=== PATIENT | female | born 1955 | race Caucasian/White ===

== ENCOUNTER 2018-07-05 13:14 | Outpatient (REF) | payer OTHER, SELFPAY ==
[2018-07-05 19:15] LABS: BUN 16 mg/dL (7-18); CREATININE 0.78 mg/dL (0.55-1.02); Chloride 106 mmol/L (98-107); Cholesterol 201 mg/dL (50-200); Glucose 92 mg/dL (70-100); HDL Cholesterol 56 mg/dL (40-60); LDL CHOLESTEROL 124 mg/dL (<100); Potassium 4.4 mmol/L (3.5-5.1); Sodium 144 mmol/L (136-145); TSH 2.05 uIU/mL (0.358-3.74); Triglyceride 110 mg/dL (30-150)
== END 2018-07-05 13:34 ==
LOC: NCHCN 13:14
PROVIDERS: Visit Provider Nurse Practitioner Family
DX: E78.5 Hyperlipidemia, unspecified (principal); I10 Essential (primary) hypertension
CPT/HCPCS: 80048; 80061; 83721; 84443

== ENCOUNTER 2018-09-01 13:40 | Outpatient (CLI) | payer OTHER, SELFPAY ==
--- NOTE | 2018-09-01 12:32 | DI.RAD_ITS ---
SYMPTOMS/DIAGNOSIS: RT HIP JOINT PAIN, M25.551 RIGHT HIP AND PELVIS: Three views were obtained. There is an apparent injection granuloma of the right buttock. There is a small ossicle adjacent to the lateral aspect of the acetabulum. There is marked narrowing of the cartilaginous joint space of the right hip with subchondral sclerosis of the acetabulum and femoral head. CONCLUSION: Moderate to severe DJD right hip.
== END 2018-09-01 14:00 ==
PROVIDERS: PCP Neuromusculoskeletal Medicine & OMM; Visit Provider Nurse Practitioner Family
DX: M25.551 Pain in right hip (principal); M16.11 Unilateral primary osteoarthritis, right hip
CPT/HCPCS: 73502

== ENCOUNTER 2018-09-19 09:12 | Emergency (ER) | payer OTHER, SELFPAY ==
[2018-09-19 09:31] VITALS: BP 132/68; PULSE 88; RESP 16; TEMP 37.6; O2SAT 96
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
== END 2018-09-19 10:56 | disposition home or self-care (01) ==
PROVIDERS: Emergency Provider Nurse Practitioner Family; PCP Nurse Practitioner Family
DX: S00.83XA Contusion of other part of head, initial encounter (principal); Y04.0XXA Assault by unarmed brawl or fight, initial encounter; Y99.0 Civilian activity done for income or pay
CPT/HCPCS: 99282

== ENCOUNTER 2018-09-23 09:41 | Emergency (ER) | payer OTHER, SELFPAY ==
[2018-09-23 09:46] VITALS: BP 158/74; PULSE 85; RESP 18; O2SAT 98
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
[2018-09-23 11:05] VITALS: BP 158/74; PULSE 85; RESP 18; TEMP 36.6; O2SAT 98
== END 2018-09-23 11:05 | disposition home or self-care (01) ==
PROVIDERS: Emergency Provider Nurse Practitioner Family; PCP Nurse Practitioner Family
DX: S00.83XA Contusion of other part of head, initial encounter (principal); Y04.0XXA Assault by unarmed brawl or fight, initial encounter
CPT/HCPCS: 99284; 70486

== ENCOUNTER 2020-09-23 15:11 | Outpatient (CLI) | payer OTHER, SELFPAY ==
--- NOTE | 2020-09-23 14:15 | DI.RAD_ITS ---
Exam(s) XR HIP RT COMPLETE AP PELVIS EXAM: XR HIP RT COMPLETE AP PELVIS CLINICAL HISTORY: right hip pain; DJD. TECHNIQUE: 2D digital imaging was performed. COMPARISON: CR XR hip RT complete AP pelvis from 09/01/2018 FINDINGS: There are marked degenerative changes of the right hip which have shown significant progression since the examination from 09/01/2018. There is now joint space narrowing, subchondral cysts and sclerosis and periarticular spurring present. Mild joint space narrowing is seen in the left hip. The sacroi liac joints and symphysis pubis are intact. No acute fracture or dislocation. IMPRESSION: Progression of the right hip which now shows marked osteoarthritis. DATA REPOSITORY: RADIATION DOSE DELIVERED:
== END 2020-09-23 15:12 | disposition home or self-care (01) ==
LOC: DIORS 15:12
PROVIDERS: PCP Nurse Practitioner Family; Referring Provider Nurse Practitioner Family; Visit Provider Physician Assistant
DX: M25.551 Pain in right hip (principal); M16.11 Unilateral primary osteoarthritis, right hip; I10 Essential (primary) hypertension
CPT/HCPCS: 99213; 73502

== ENCOUNTER 2020-10-29 14:22 | Outpatient (CLI) | payer OTHER, SELFPAY ==
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
== END 2020-10-29 14:23 | disposition home or self-care (01) ==
LOC: DIORS 14:23
PROVIDERS: PCP Nurse Practitioner Family; Referring Provider Nurse Practitioner Family; Visit Provider Physician Assistant
DX: M25.551 Pain in right hip (principal); M16.11 Unilateral primary osteoarthritis, right hip
CPT/HCPCS: 72170

== ENCOUNTER 2020-11-04 02:19 | Outpatient (CLI) | payer OTHER, SELFPAY ==
[2020-11-04 11:23] LABS: Source Nasal/Nares
[2020-11-04 21:00] LABS: COVID-19 PCR Negative (Negative)
== END 2020-11-04 02:20 | disposition home or self-care (01) ==
LOC: LBO 02:20
PROVIDERS: PCP Physician Assistant; Visit Provider Student in an Organized Health Care Education/Training Program
DX: Z20.822 Contact with and (suspected) exposure to COVID-19 (principal); Z01.818 Encounter for other preprocedural examination
CPT/HCPCS: 87635

== ENCOUNTER 2020-11-04 02:33 | Outpatient (CLI) | payer OTHER, SELFPAY ==
[2020-11-04 10:20] LABS: HCT 36.2 % (36.0-46.0); HGB 11.8 g/dL (11.2-15.7); MCH 28.7 pg (27.0-33.0); MCHC 32.6 % (32.0-36.0); MCV 88.1 fL (80-95); MPV 10.3 fL (8.0-11.0); Platelet Count 266 10^3/uL (130-400); RBC 4.11 10^6/uL (3.93-5.22); RDW 13.2 % (11.7-14.6); RDW-SD 42.3 fL; WBC 7.71 10^3/uL (4.4-10.8)
[2020-11-04 11:22] LABS: BUN 32 mg/dL (7-18); CREATININE 1.1 mg/dL (0.55-1.02); Calcium 9.6 mg/dL (8.5-10.1); Chloride 108 mmol/L (98-107); Estimated GFR 49.54 (mL/min/1.73m2); Glucose 105 mg/dL (74-106); Potassium 4.6 mmol/L (3.5-5.1); Sodium 145 mmol/L (136-145)
== END 2020-11-04 02:34 | disposition home or self-care (01) ==
LOC: LBO 02:33
PROVIDERS: PCP Physician Assistant; Visit Provider Student in an Organized Health Care Education/Training Program
DX: M25.551 Pain in right hip (principal); Z16.11 Resistance to penicillins; I10 Essential (primary) hypertension; Z01.818 Encounter for other preprocedural examination; Z01.812 Encounter for preprocedural laboratory examination
CPT/HCPCS: 36415; 80048; 85027; 86850; 86900; 86901

== ENCOUNTER 2020-11-05 06:07 | Day surgery (SDC) | payer OTHER, SELFPAY ==
[2020-11-05] VITALS (12 sets, daily range): BP systolic 99–164; BP diastolic 50–87; PULSE 54–67; RESP 13–21; TEMP 35.7–36.5; TEMPC 36.1; O2SAT 95–99; BMI 34.4
[2020-11-05] MEDS: Celecoxib 200 MG CAP 400 MG PO (06:27)
[2020-11-05] MEDS: Acetaminophen 500 MG TAB 1000 MG PO ×2 (06:27→14:27)
[2020-11-05] MEDS: Lactated Ringers 1,000 ML 80 ML IV (06:28)
--- NOTE | 2020-11-05 06:32 | W.ANESPRE ---
General Info Date of Service Date Performed: 11/05/20 Height: 5 ft 8.5 in Weight: 104.1 kg Body Mass Index (BMI): 34.4 Surgical Procedure: Operation Date: 11/05/20 07:50 Proposed Procedures Side Surgeon p Hip Total Hip Anterior Right Andrew Arizmendi MD Meds Allergies and Home Medications Allergies Allergy/AdvReac Type Severity Reaction Status Date / Time No Known Allergies Allergy Unverified 11/05/20 06:02 Home Medication Medication Instructions Recorded acetaminophen 500 mg capsule 1,000 mg PO BID PRN cap 09/23/20 hydrocodone 10 mg-acetaminophen 1 tab PO TID PRN tab 09/23/20 325 mg tablet lisinopril 10 mg tablet 10 mg PO DAILY 09/23/20 naproxen 250 mg tablet 500 mg PO BID PRN tab 09/23/20 magnesium oxide 500 mg capsule 250 mg PO BID cap 10/29/20 Current Visit Medications: Current Medications Generic Name Dose Route Start Last Admin Trade Name Freq PRN Reason Stop Dose Admin Acetaminophen 1,000 mg 11/05/20 06:00 11/05/20 06:27 Acetaminophen 500 Mg Tab PO 11/05/20 16:00 1,000 mg PREOP ELIEZER Administration Celecoxib 400 mg 11/05/20 06:00 11/05/20 06:27 Celecoxib 200 Mg Cap PO 11/05/20 16:00 400 mg PREOP ELIEZER Administration Tranexamic Acid 1,000 mg/ 60 mls @ 360 mls/hr 11/05/20 06:00 Sodium Chloride IV 11/05/20 16:00 PREOP ELIEZER Ringer's Solution 1,000 mls @ 80 mls/hr 11/05/20 06:00 11/05/20 06:28 IV 12/04/20 23:59 80 mls/hr INFUSION ELIEZER Administration Cefazolin Sodium/Dextrose 2 gm in 50 mls @ 100 mls/hr 11/05/20 06:00 Ancef Duplex IVPB 11/05/20 23:59 PREOP ELIEZER IV Miscellaneous Supplies 1 each 11/05/20 06:00 Iv Access IV 12/04/20 23:59 DIRECTED ELIEZER Sodium Chloride 0 ml 11/05/20 06:00 Normal Saline Flush 10 Ml Syr IV 12/04/20 23:59 PRN PRN Sodium Chloride 0 ml 11/05/20 06:00 Normal Saline 10 Ml Vial IJ 12/04/20 23:59 DIRECTED PRN Sterile Water 0 ml 11/05/20 06:00 Water,Injection,Sterile 10 Ml Vial IJ 12/04/20 23:59 DIRECTED PRN PFSH Active Problems Active Problems: Problem Status Onset Code Hyperlipidemia E78.5 Degenerative disc disease Hypertension I10 Degenerative joint disease of right hip M16.11 Medical History Medical History Degenerative disc disease Degenerative joint disease of right hip Depression Hyperlipidemia Hypertension Injury of thoracic spine As a young adult from a horse injury Subdural hematoma trauma from horse ~18 yrs old Urine incontinence Surgical History Surgical History History of general anesthesia several times - ankle reductions removal of 4 wisdom teeth Ruptured appendix 8 yrs old Status post D&C UTI while - lead to early delivery at 27 wks - ?infected placenta and bleeding Tobacco Smoking/Tobacco Use Status: Former Tobacco Use Alcohol Alcohol Intake: current Alcohol intake frequency: a few times a month Substance Use Substance use: Daily Substance use type: marijuana Details: daily - smoking Vital Signs and Lab Results Vital Signs Most Recent Vital Signs in EMR: Most Recent Vital Signs Temp Pulse Resp BP Pulse Ox 35.7 C L 66 18 164/87 H 99 11/05/20 06:18 11/05/20 06:18 11/05/20 06:18 11/05/20 06:18 11/05/20 06:18 Lab Results Blood Type / Crossmatch: Patient ABO/Rh B Positive 11/04/20 10:06 11/04/20 Antibody Screen Negative 11/04/20 10:06 11/04/20 Complete Blood Count: White Blood Count 7.71 10^3/uL (4.4-10.8) 11/04/20 10:06 11/04/20 Red Blood Count 4.11 10^6/uL (3.93-5.22) 11/04/20 10:06 11/04/20 Hemoglobin 11.8 g/dL (11.2-15.7) 11/04/20 10:06 11/04/20 Hematocrit 36.2 % (36.0-46.0) 11/04/20 10:06 11/04/20 Platelet Count 266 10^3/uL (130-400) 11/04/20 10:06 11/04/20 Complete Metabolic Panel: Sodium Level 145 mmol/L (136-145) 11/04/20 10:06 11/04/20 Potassium Level 4.6 mmol/L (3.5-5.1) 11/04/20 10:06 11/04/20 Chloride Level 108 mmol/L (98-107) H 11/04/20 10:06 11/04/20 Carbon Dioxide Level 27.0 mmol/L (21.0-32.0) 11/04/20 10:06 11/04/20 Blood Urea Nitrogen 32 mg/dL (7-18) H 11/04/20 10:06 11/04/20 Creatinine 1.1 mg/dL (0.55-1.02) H 11/04/20 10:06 11/04/20 Calcium Level 9.6 mg/dL (8.5-10.1) 11/04/20 10:06 11/04/20 Glucose Level 105 mg/dL (74-106) 11/04/20 10:06 11/04/20 Liver Function Panel: No Data to Display Coagulation Panel: No Data to Display Cardiac Panel: No Data to Display Arterial Blood Gas: No Data to Display Venous Blood Gas: No Data to Display Pancreas Panel: No Data to Display Thyroid Panel: No Data to Display Infectious Disease: Coronavirus (COVID-19)(PCR) Negative (Negative) 11/04/20 10:42 11/04/20 Coronavirus 2019 Source Nasal/nares 11/04/20 10:42 11/04/20 Blood Cultures: No Data to Display Toxicology Panel: No Data to Display Anesthesia Assessment and Plan Anesthesia History Personal History: No History of Anesthesia Complications Family History: No Family History of Anesthesia Complications Exercise Tolerance Exercise Tolerance: Metabolic Equivalents>4 Pertinent Negatives Pertinent Negatives: No Symptoms of GERD, No Major Cardiovascular Symptoms or Complaints, No Major Pulmonary Symptoms or Complaints and No History of CVA/TIA Cardiac & Pulmonary Exam Cardiac Exam: Normal S1/S2 Heart Sounds Pulmonary Exam: Clear Bilateral Breath Sounds Airway Exam Known Difficult Airway: No Mallampati Class: 2 Mouth Opening: Narrow (< 3cm) Thyromental Distance: Greater than 3 cm Neck Range of Motion: Full ROM Neck Circumference: Normal Teeth Condition: Normal Dentition ASA Classification ASA Score: ASA 2 Emergency Case?: No NPO Status NPO Status: NPO Clears >2 hours, Solids >8 hours Anesthesia Plan Resuscitation Status: Full Code Anesthesia Technique: General Anesthesia Airway Planned: Endotracheal Tube Monitors Used: Standard Monitors
--- NOTE | 2020-11-05 07:42 | W.PM.DSUDISC ---
Documented by User: YANDEL Ibarra 11/05/20 10:15 Discharge Plan Disposition Patient Disposition: HOME Condition: Stable Discharge Details Reason For Visit: Right TANYA Attending Provider: Andrew Arizmendi Primary Care Provider: Alyse Wilkerson Home Meds and New Rx's Prescriptions: New aspirin 81 mg tablet,delayed release (DR/EC) 81 mg PO BID Qty: 60 RF: 0 celecoxib [Celebrex] 200 mg capsule 200 mg PO BID Qty: 60 RF: 0 acetaminophen [Tylenol Extra Strength] 500 mg tablet 500 mg PO Q6H PRNQty: 90 RF: 0 pantoprazole [Protonix] 40 mg tablet,delayed release (DR/EC) 40 mg PO DAILY Qty: 30 RF: 0 oxycodone 5 mg tablet 5 mg PO Q4H PRNQty: 18 RF: 0 Continued naproxen 250 mg tablet 500 mg PO BID PRNRF: 0 lisinopril 10 mg tablet 10 mg PO DAILY RF: 0 magnesium oxide 500 mg capsule 250 mg PO BID RF: 0 Discontinued acetaminophen 500 mg capsule 1,000 mg PO BID PRNRF: 0 hydrocodone-acetaminophen 10-325 mg tablet 1 tab PO TID PRNRF: 0 Discharge Instructions Additional Instructions: Total Hip Discharge Instructions Activity: The most important activity is to walk. You should try to take short walks a few times a day. You have no restrictions on movement or positioning, but do not try to force what you do. You will find some stiffness and weakness with hip flexion (lifting your knee). Do not try to strengthen this too early, continue to practice walking and stairs and this will come. - Outpatient physical therapy can be helpful to help return you to a normal gait and improve your flexibility and strength. This can start around 2 weeks. For some patients, it?s not necessary. Usually this is determined at the time of discharge or at the first post-operative visit. - You should wear the ALEM hose on both legs for 2 weeks. Dressing: Keep the surgical dressing in place for at least one week. After the first week it may be removed and replace with light gauze and tape or nothing. It may get wet after 3 days but avoid soaking the dressing. If it gets wet, just lightly pat dry. It is important to always keep some gauze between skin folds, especially when you are sitting. Spend some time with the wound exposed when you are lying flat as the incision does wrinkle onto itself. Medications: - You should take Tylenol and an anti-inflammatory Celebrex as your primary pain control medications. If the Celebrex is too expensive or not covered, please call the office for another alternative (Advil/Ibuprofen or Naproxen/Aleve). - Stop your Hydrocodone-acetaminophen. You have been prescribed a stronger pain medication Oxycodone for breakthrough pain, take as needed as prescribed. - You have also been prescribed a stomach acid reduction agent Pantoprozole to help reduce stomach acid and reflux. - You will be taking Aspirin 81mg twice a day for DVT prevention unless instructed otherwise. - If you have constipation you should take Colace or Miralax (both [id number]). It takes most people 3-4 days to have a bowel movement. Follow-up: 2 weeks If you have any acute concerns or questions, please do not hesitate to contact the office at [phone]. You may contact Dr. Arizmendi with any questions after hours through the hospital at [phone] or on his cell phone at [phone]. Stand Alone Forms: Anesthesia Discharge Inst[facility] [place] ([facility]) Referrals: Andrew Arizmendi MD [ [facility] STAFF PHYSICIAN] - Equipment/Supplies: Walker Activity:: Activity as Tolerated Remove Dressings/Wound Care:: Do Not Remove Shower/Bathe:: 72 hours Diet:: As Tolerated Discharge Orders Discharge Orders: Discharge Order (Routine); Ordered 11/05/20 Ordered By: Andrew Arizmendi DS: Diagnosis Discharge Diagnosis (1) Degenerative joint disease of right hip: Status: Acute Documented by User: Andrew Arizmendi MD 11/05/20 13:22 Discharge Plan Disposition Patient Disposition: HOME Condition: Stable Discharge Details Reason For Visit: Right TANYA Attending Provider: Andrew Arizmendi Primary Care Provider: Alyse Wilkerson Home Meds and New Rx's Prescriptions: New aspirin 81 mg tablet,delayed release (DR/EC) 81 mg PO BID Qty: 60 RF: 0 celecoxib [Celebrex] 200 mg capsule 200 mg PO BID Qty: 60 RF: 0 acetaminophen [Tylenol Extra Strength] 500 mg tablet 500 mg PO Q6H PRNQty: 90 RF: 0 pantoprazole [Protonix] 40 mg tablet,delayed release (DR/EC) 40 mg PO DAILY Qty: 30 RF: 0 oxycodone 5 mg tablet 5 mg PO Q4H PRNQty: 18 RF: 0 Continued naproxen 250 mg tablet 500 mg PO BID PRNRF: 0 lisinopril 10 mg tablet 10 mg PO DAILY RF: 0 magnesium oxide 500 mg capsule 250 mg PO BID RF: 0 Discontinued acetaminophen 500 mg capsule 1,000 mg PO BID PRNRF: 0 hydrocodone-acetaminophen 10-325 mg tablet 1 tab PO TID PRNRF: 0 Discharge Instructions Additional Instructions: Total Hip Discharge Instructions Activity: The most important activity is to walk. You should try to take short walks a few times a day. You have no restrictions on movement or positioning, but do not try to force what you do. You will find some stiffness and weakness with hip flexion (lifting your knee). Do not try to strengthen this too early, continue to practice walking and stairs and this will come. - Outpatient physical therapy can be helpful to help return you to a normal gait and improve your flexibility and strength. This can start around 2 weeks. For some patients, it?s not necessary. Usually this is determined at the time of discharge or at the first post-operative visit. - You should wear the ALEM hose on both legs for 2 weeks. Dressing: Keep the surgical dressing in place for at least one week. After the first week it may be removed and replace with light gauze and tape or nothing. It may get wet after 3 days but avoid soaking the dressing. If it gets wet, just lightly pat dry. It is important to always keep some gauze between skin folds, especially when you are sitting. Spend some time with the wound exposed when you are lying flat as the incision does wrinkle onto itself. Medications: - You should take Tylenol and an anti-inflammatory Celebrex as your primary pain control medications. If the Celebrex is too expensive or not covered, please call the office for another alternative (Advil/Ibuprofen or Naproxen/Aleve). - Stop your Hydrocodone-acetaminophen. You have been prescribed a stronger pain medication Oxycodone for breakthrough pain, take as needed as prescribed. - You have also been prescribed a stomach acid reduction agent Pantoprozole to help reduce stomach acid and reflux. - You will be taking Aspirin 81mg twice a day for DVT prevention unless instructed otherwise. - If you have constipation you should take Colace or Miralax (both [id number]). It takes most people 3-4 days to have a bowel movement. Follow-up: 2 weeks If you have any acute concerns or questions, please do not hesitate to contact the office at [phone]. You may contact Dr. Arizmendi with any questions after hours through the hospital at [phone] or on his cell phone at [phone]. Stand Alone Forms: Anesthesia Discharge Inst., [place] ([facility]) Referrals: Andrew Arizmendi MD [ [facility] STAFF PHYSICIAN] - Equipment/Supplies: Walker Activity:: Activity as Tolerated Remove Dressings/Wound Care:: Do Not Remove Shower/Bathe:: 72 hours Diet:: As Tolerated Discharge Orders Discharge Orders: Discharge Order (Routine); Ordered 11/05/20 Ordered By: Andrew Arizmendi
[2020-11-05] MEDS: ceFAZolin 2 GM/50 ML BAG IVPB (08:00)
[2020-11-05] MEDS: Ketorolac 30 MG/ML VIAL (08:48)
[2020-11-05] MEDS: Bupivacaine 0.25% Pres-Free 30 ML VIAL (08:48)
--- NOTE | 2020-11-05 09:02 | DI.RAD_ITS ---
Exam(s) XR HIP RT IN OR EXAM: XR HIP RT IN OR CLINICAL HISTORY: RIGHT HIP OA TECHNIQUE: 2D and realtime digital imaging was performed. CONTRAST MATERIAL: Refer to procedure report. COMPARISON: No exams were available for comparison FINDINGS: Fluoroscopy was provided for Dr. Arizmendi during the performance of a right hip arthroplasty. Aletha rizo refer to the procedure report for complete details. Ka,r=2.87 mGy IMPRESSION: RADIATION DOSE DELIVERED:
--- NOTE | 2020-11-05 10:50 | W.ANESPOSTOP ---
Postoperative Evaluation Date, Time and Location Date Performed: 11/05/20 Time Performed: 11:13 Patient Location: Day Surgery Unit Vital Signs Most Recent Imported Vital Signs: Most Recent Vital Signs Temp Pulse Resp BP Pulse Ox 36.5 C 54 L 21 122/81 96 11/05/20 10:13 11/05/20 10:13 11/05/20 10:13 11/05/20 10:13 11/05/20 10:13 Most Recent Manually Entered Vital Signs: Adult Blood Pressure: 137/82 Heart Rate: 55 Respirations: 18 Oxygen Saturation (%): 97 Temperature (C): 36.1 C Pain Score (0-10 Scale): 4 Pain Score Most Recent Pain Score: Most Recent Pain Score Pain Level 0 11/05/20 10:13 Assessment Mental Status: Awake (Alert & Oriented to Patient Baseline) Airway and Respiratory Function: Patent airway with normal (patient baseline) respiratory exam Cardiovascular Function: Hemodynamically Stable Hydration Status: Adequately Hydrated Nausea & Vomiting: No Nausea or Vomiting Pain: Pain is tolerable/mild (<5/10) Peripheral Nerve Block: Patient did not receive a nerve block
--- NOTE | 2020-11-05 11:07 | ROE_ITS ---
Date of service: 11/05/20 Time of Service: 09:07 Operative Note Operative Note DATE OF PROCEDURE: 11/05/20 PRE-OP DIAGNOSIS: Right Hip Osteoarthritis POST-OP DIAGNOSIS: same PROCEDURE: Right Anterior Total Hip Arthroplasty with Intraoperative Navigation SURGEON: Andrew Arizmendi ASSISTING SURGEON: Heena Townsend ANESTHESIA TYPE: General LMA/ETT Refer to Anesthesia Record ESTIMATED BLOOD LOSS: 400 PATHOLOGY: none sent COMPLICATIONS: None Patient was transported to: PACU Patient's condition: stable Implants: 1. Depuy Winfield Acetabular Component, 52mm 2. Depuy Acetabular Liner, [id number] 3. Depuy Corail Standard 125 deg Collared Femoral Stem, Size 12 4. Depuy Altrx Ceramic Femoral Head, Size 36+1.5mm Indications: I have seen Ana in clinic for symptoms of hip arthritis, confirmed with radiographic findings. She has exhausted nonoperative methods and was having significant limitations in daily function and desired better function and less pain. I discussed the technical details of a hip replacement. I explained the risks of the procedure to include, but not limited to, bleeding, infection, pain, stiffness, fracture, damage to nerves and vessels, damage to muscles and tendons, loosening, instability, leg length inequality, need for repeat procedure, blood clot and cardiopulmonary demise. Despite these risks, Ana elected to proceed. Findings: There was significant signs of arthritis throughout the hip with a loose piece of femoral head medially. Hypertrophic and inflammed synovium was resected from within the hip. Procedure Description: Ana was greeted in the preoperative holding area where the correct side was identified and marked. The consent was reviewed with the patient and signed. The history and physical was updated. All questions were answered. She was taken back to the operating room. A general anesthetic was administered. A plasencia catheter was placed per patient preference. The feet were wrapped with cast padding and Coban and then placed into the boot liners and then into the boots. Care was taken to protect the skin and make sure the heels were fully down and the boots were stable. The patient was then posi tioned onto the HANA table. Both legs were held in a neutral position. SCDs were applied. The patient was then slid down onto a peroneal post. Prophylactic antibiotics in the form of Cefazolin were administered. 1g of Tranxemic Acid was given intravenously within 30 minutes of incision. The right leg was then prepped with Chloraprep and draped in a standard fashion. A second prep with Chloraprep was performed prior to placement of a shower-curtain type drape with Iodine impregnated skin protection. A timeout to confirm correct identity, side and site, procedure, allergies, anesthesia, and medical concerns was performed. An obliquely oriented incision was made starting lateral to the ASIS and running distal over the Tensor Fascia Marisol (TFL) muscle belly toward the fibular head, approximately 10cm. The skin and soft tissue was dissected sharply, through Dusty?s fascia, and to the fascia of the TFL. With the fascia and superior border of the IT band identified, the fascia was incised with a new knife just above any perforators from the IT band. The TFL muscle belly was bluntly dissected away from the fascia and moved laterally. The fat between TFL and rectus was identified to ensure the dissection was not within the TFL. Blunt dissection created space between abductors and the capsule and retractor was placed over the lateral femoral neck. The fibers of the rectus femoris tendon were identified and these were freed from the anterior capsule. A second cobra retractor was placed around the medial femoral neck. The TFL was further retracted laterally to show the deep fascia. Careful dissection through this layer identified three main crossing vessels of the lateral femoral circumflex. These were cauterized in multiple locations and then cut without any noticeable bleeding. The TFL was further released bluntly from the deep fascia to expose anterior hip capsule and fat The Silver orthopaedic retractor was then placed beneath the TFL and against sartorius and medial soft tissues to protect and retract the soft tissues. A T-capsulotomy was then performed starting at the superior lateral acetabulum and moving distally to the intertrochanteric ridge. These capsular flaps were tagged with a No. 1 Ethibond and elevated from within. The capsular flaps were released to the shoulder of the lateral neck and to the lesser trochanter to give excellent visualization of the proximal femur. A neck osteotomy was performed using an oscillating saw based on preoperative templates. This cut started in the shoulder and of the lateral neck and exited medially. The saw was at all times directed medially to avoid injury to the greater trochanter. Gross traction was applied to the leg and the osteotomy opened. The femoral head was removed with a corkscrew, making sure to protect the TFL on its exit. Traction was released after head removal. This was measured on the back table to determine the starting reamer size. Portions of the rectus obscuring visualization were minimally elevated off the superior acetabulum. An anterior retractor was placed over the anterior wall between capsule and labrum and attached to the Gripper retraction system. The femur was rotated to 90 degrees and medial capsule was fully released until the lesser trochanter was palpable and visible; the femur was returned to 30 degrees. A posterior retractor was placed similarly between capsule and labrum. There was significant inflammatory and hypertrophic synovitis which was resected. This provided excellent visualization. The contents of the cotyloid fossa were removed with electrocautery and the labrum was removed with a knife. There was a notable floor osteophyte. There was significant chondromalacia of the superior acetabulum. Acetabular reaming began with a 48mm reamer. This first reaming was directed anterior to posterior and medial to get down to the true floor. This was inspected and reamed until the true floor was reached. The anterior retractor was then released and entry and exit was provided by traction on the capsular flaps. I then reamed sequentially up to a 52mm reamer where good fit was obtained. The larger reamers were oriented based on anatomical reference of the anterior and lateral palomino to ensure proper abduction and anteversion. Positioning and size was confirmed with the fluoroscopy. A 52mm Depuy Winfield acetabular component was selected. The deep tissues were irrigated. The acetabular component was then impacted in a position of about 40-45 degrees of abduction and 15-20 degrees of anteversion, using the patient?s anatomy as the ultimate landmark. Fluoroscopy was used to confirm this. There was excellent customer service leader of the acetabular component and the inserting handle was removed. The acetabular liner, Depuy 30i18er polyethylene liner, was inserted and lined up with the tines of the acetabular component. There was no soft tissue interposition. The liner was then impacted into position and confirmed to be well-seated. A portion of the alfred-articular cocktail was then injected around the acetabulum into the capsule and periosteum. This cocktail consisted of 50cc of 0.25% Bupivicaine and 20cc of Exparel and 30mg of Ketorolac. The leg was rotated to 120 degrees. Any remaining medial capsule was released until the lesser trochanter was easily palpable. A retractor was placed med ially. The lateral capsule was further released into the shoulder to allow access to the greater trochanter. A Manzanares retractor was placed over the greater trochanter which allowed the trochanter to flip in front of the capsule for excellent exposure. The leg was brought down into maximal extension and 20 degrees of adduction while ensuring there was no impingement on the acetabulum. Any remnant capsule within the trochanter was released. Piriformis and obturator externis were identified and protected. There was excellent access to the proximal femur. The lateral neck remnant was removed with a rongeur. A blunt canal probe was used to identify the canal and trajectory for later broaching. A box osteotome initiated the broach course. A small curved rasp and a curved curette were used to work laterally. Broaching then began with a size 8 Corail broach. This was inserted manually around the trochanter and into the canal before mallet blows. The broach was seated to a few millimeters below the cut level based on the neck cut and the preoperative template. Sequential broaching was continued with the Matchmovese pneumatic broaching device until a tight fit was obtained with good rotational control of the femur. A trial standard 125 degree neck was inserted along with a +5 trial head. The leg was brought out of extension and adduction and then reduced with traction and internal rotation. The leg was stable anteriorly in a position of 30 degrees of extension and 90 degrees of external rotation. Fluoroscopy was used to ensure there was no fracture and the stem was seated well. Leg lengths were checked with an AP pelvis and pelvic reference points. Vibrow navigation system was used to confirm appropriate positioning and leg length and offset. Once content with the desired offset and leg lengths, the leg was brought back into extension, external rotation and adduction. The periosteum and surrounding tissue was injected with remaining portion of the alfred-articular cocktail. The proximal femur was irrigated as well as the deep tissues. The Depuy Corail standard 125 degree collared stem, size 12, was then manually inserted into the proximal femur making sure to control rotation. It was then malleted into position with light blows, giving breaks to allow bone expansion and decrease risk of fracture. The selected Depuy Altrx Ceramic Head, size 36+1.5mm, was then placed onto the clean and dry trunnion and secured with impaction onto the tapered fit. The leg was brought back out of extension and adduction and reduced with traction and internal rotation. Stability was confirmed with no shuck at 90 degrees of external rotation and 30 degrees of extension. No impingement through range of motion arc. Final x-ray images were obtained with fluoroscopy to confirm adequate positioning and no intraoperative fracture. The deep tissues were thoroughly irrigated with Irrisept chlorhexadine solution. The capsule was then reapproximated with the previously placed Ethibond sutures. The TFL fascia was finally closed with a No. 2 Stratafix, barbed suture. Deep tissues were then reapproximated with 0 Vicryl and a running 2-0 Vicryl. The skin was closed with a running 4-0 Monocryl in a subcuticular fashion. This was reinforced with skin glue. A Mepilex silver dressing was applied. At the end of the case, all counts were correct. Ana was transferred to the hospital bed without difficulty and suffering no apparent complication. Ana has a good prognosis. Physical therapy will start today and without restrictions, weight-bearing as tolerated. Aspirin 81mg BID will be used for DVT prophylaxis.
[2020-11-05] MEDS: oxyCODONE 5 MG TAB PO (11:25)
--- NOTE | 2020-11-05 12:35 | IN_ITS ---
Date of service: 11/05/20 Time of Service: 12:35 PT Notes Visit Reasons: Right TANYA Physical Therapy Day Surgery Initial Evaluation Date: 11/05/2020 Referring Doctor: YANDEL Ibarra PT Orders: PT CONSULT: Status post Ortho surgery Precautions: WBAT on right LE with AD. Patient Profile/Admitting Diagnosis: Ana is a 65-year-old female with degenerative joint disease of the right hip and is status post right anterior total hip arthroplasty with intraoperative navigation on postoperative day 0. PMHX: Medical History (Updated 10/29/20 @ 13:43 by Margi Delgado) Degenerative disc disease Degenerative joint disease of right hip Depression Hyperlipidemia Hypertension Injury of thoracic spine As a young adult from a horse injury Subdural hematoma trauma from horse ~18 yrs old Surgical History (Updated 10/29/20 @ 13:46 by Margi Delgado) History of general anesthesia several times - ankle reductions removal of 4 wisdom teeth Ruptured appendix 8 yrs old Status post D&C UTI while - lead to early delivery at 27 wks - ?infected placenta and bleeding Social History/Home Situation: Lives in a private home with 3 steps to enter with bilateral rails. Uses a single-point cane indoors, front wheeled walker for outdoors. Equipment Owned/DME: Single-point cane, front-wheeled walker Subjective: Patient reports that she feels amazing and freaking awesome. She is very appreciative of how well she is moving without the pain. Objective: General Observation: Mepilex Ag over surgical incision. Bilateral TEDS on B legs. IV access in right UE. Mental Status: Alert and oriented x 4 Pain: 1?2/10 in the right hip with weight bearing ROM: Right Lower Extremity: Hip flexion unable to lift knee beyond 90 while seated at edge of bed due to discomfort. Hip abduction WFL but with discomfort at end of range. Knee flexion -30 degrees to 100 degrees with pain at end of range. Extension -30 degrees ankle dorsiflexion WFL. Ankle plantarflexion WFL. Left Lower Extremity: Hip flexion WFL. Hip abduction WFL. Knee flexion WFL. Ankle dorsiflexion WFL. Ankle plantarflexion WFL. Strength: Right Lower Extremity: Hip flexors 3-/5. Hip abductors 4-/5. Knee flexors 3-/5. Knee extensors 3-/5. Ankle dorsiflexors 4-/5. Ankle plantarflexors 4-/5. Left Lower Extremity:Hip flexors 4/5. Hip abductors 4/5. Knee flexors 4/5. Knee extensors 4/5. Ankle dorsiflexors 4/5. Ankle plantarflexors 4/5. Sensation: Intact as to pain and light pressure in B LE Bed Mobility/Transfers: Supine to sit supervision Sit to stand contact-guard assist Stand to sit standby assist Bed to chair standby assist Gait: Guided patient with level surface ambulation of 150 feet using properly- fitted personal FWW with step-to gait pattern, R foot with increased toeing-in compared to the L. Reports 1-2/10 pain. Cues needed for more upright trunk posture and R hip/tibial external rotation to minimize excessive in-toeing with good compliance. Balance: Static Sitting: Normal Dynamic Sitting: Normal Static Standing: Fair Dynamic Standing: Fair Special Tests: Mobility Limitations Standardized Measure [facility]-PAC 6 clicks Basic Mobility Inpatient Short Form: Raw Score: 21 CMS Score: 29% deficit Informed Consent/Education: Patient instructed in purpose of PT consult. Packet containing [] exercise protocol has been given to patient. Education and training on initial set of exercises that can be done at home have been completed with patient. Assessment: Ana is highly motivated and driven to get better and to be in compliance of recommendations. Her hip flexion strength is limited by her discomfort/postoperative weakness but did not limit her ambulation and stair negotiation skills for this evaluation. She goes home with her personal FWW. She will benefit from OP PT services to achieve highest functional level. Patient presents with clinical signs and symptoms consistent with current/admitting diagnoses that have resulted to mobility limitations, gait instability, generalized weakness, and impairment of motor control as demonstrated by the following impairment level findings: 1. Decreased strength to right hip major muscle groups 2. Impaired standing balance 3. Limitation of joint range of motion in right hip Impairments are contributing to the following functional limitations: 1. Inability to safely ambulate without assistive device 2. Increase completion time for mobility ADL performance 3. Increased fall risk Patient is assessed as a 20615 moderate complexity based on the following: History: 65-year-old female with impairment level findings, functional limitations, and past medical history as indicated above Examination: Demonstrable impairment in strength, balance, and mobility level with underlying impairments and functional limitations as documented above Presentation: Stable Decision Makin moderate complexity Goals: N/A. PT evaluation and 1 treatment sessions only for functional mobility training using recommended AD and for HEP instruction. Plan of Care/Treatment Plan: N/A. PT evaluation and 1 treatment session only for functional mobility training using recommended AD and for HEP instruction. DISCHARGE RECOMMENDATIONS: Home when medically cleared by orthopedic surgeon. OP PT services to achieve independent comunity ambulation without and AD. TREATMENT CODE/TIME: 07070 x 20 minutes, 72725 x 35 minutes beginning at 12:35 PM. Thank you for the opportunity to participate in the care of this patient. Jennifer Flores PT, DPT, CLT [facility] [place], [place]
== END 2020-11-05 14:45 | disposition home or self-care (01) ==
PROVIDERS: PCP Physician Assistant; Visit Provider Student in an Organized Health Care Education/Training Program
PROC: (CPT 27130; principal; 2020-11-05 07:30)
DX: M16.11 Unilateral primary osteoarthritis, right hip (principal); Z96.641 Presence of right artificial hip joint; I10 Essential (primary) hypertension
CPT/HCPCS: 27130; 20985; C1776; 97162; 97530; 73501; J0690; J1100; J1885; J2001; J2250; J2405; J2704; J3010

== ENCOUNTER 2020-11-18 14:21 | Outpatient (CLI) | payer OTHER, SELFPAY ==
--- NOTE | 2020-11-18 14:16 | DI.RAD_ITS ---
Exam(s) XR HIP RT COMPLETE AP PELVIS EXAM: XR HIP RT COMPLETE AP PELVIS CLINICAL HISTORY: 1st post op R TANYA. TECHNIQUE: 2D digital imaging was performed. COMPARISON: CR XR PELVIS AP from 10/29/2020 FINDINGS: There has been interval placement of a right hip prosthesis. Components are in satisfactory position alignment. No fracture or loosening evident. IMPRESSION: DATA REPOSITORY: RADIATION DOSE DELIVERED:
== END 2020-11-18 14:22 | disposition home or self-care (01) ==
LOC: DIORS 14:21
PROVIDERS: PCP Physician Assistant; Referring Provider Nurse Practitioner Family; Visit Provider Student in an Organized Health Care Education/Training Program
DX: Z47.1 Aftercare following joint replacement surgery (principal); Z96.641 Presence of right artificial hip joint
CPT/HCPCS: 73502

== ENCOUNTER → 2020-12-16 14:02 | Outpatient (BNVA) | payer OTHER, SELFPAY | PROVIDERS: PCP Physician Assistant; Referring Provider Physician Assistant; Visit Provider Student in an Organized Health Care Education/Training Program | DX: Z47.1 Aftercare following joint replacement surgery (principal); Z96.641 Presence of right artificial hip joint ==

== ENCOUNTER → 2021-01-30 11:35 | Outpatient (BNVA) | payer OTHER, SELFPAY | PROVIDERS: PCP Physician Assistant; Referring Provider Physician Assistant; Visit Provider Student in an Organized Health Care Education/Training Program | DX: Z47.1 Aftercare following joint replacement surgery (principal); Z96.641 Presence of right artificial hip joint ==

== ENCOUNTER 2021-02-21 17:33 | Outpatient (REF) | payer OTHER, SELFPAY ==
[2021-02-21 18:49] LABS: Anion Gap 9.3 mmol/L (3-11); BUN 14 mg/dL (7-18); CO2 27.7 mmol/L (21.0-32.0); CREATININE 0.8 mg/dL (0.55-1.02); Calcium 9.1 mg/dL (8.5-10.1); Chloride 107 mmol/L (98-107); Glucose 113 mg/dL (74-106); Potassium 4.3 mmol/L (3.5-5.1); Sodium 144 mmol/L (136-145)
== END 2021-02-21 17:34 | disposition home or self-care (01) ==
LOC: NCHCN 17:33
PROVIDERS: PCP Physician Assistant; Visit Provider Physician Assistant
DX: I10 Essential (primary) hypertension (principal)
CPT/HCPCS: 80048

== ENCOUNTER 2021-03-20 18:50 | Outpatient (CLI) | payer MEDICARE, SELFPAY ==
--- NOTE | 2021-03-20 14:30 | DI.CT_ITS ---
Exam(s) CT RENAL COLIC WO EXAM: CT RENAL COLIC WO CLINICAL HISTORY: H/O KIDNEY STONES, [id number],? CURRENT STONE. TECHNIQUE: Imaging Protocol: Axial computed tomography images with coronal and sagittal reformatted images were created and reviewed CONTRAST MATERIAL: Intravenous: none Oral: None COMPARISON: No exams were available for comparison FINDINGS: VISUALIZED LUNG BASES: No nodules nor pleural effusions evident. ABDOMEN: There is no ascites. LIVER: There are no obvious focal hepatic lesions evident of this noninfused study. GALLBLADDER/BILIARY: No obvious gallbladder pathology. CBD is not dilated. PANCREAS: No evidence of pancreatic mass nor dilatation of the pancreatic duct. SPLEEN: Spleen is not enlarged. No obvious intrasplenic lesions. ADRENALS: There is a hypodense nodule at the level genu of the right adrenal gland measuring 1.7 x 1. 6 cm, probably an adenoma.. Left adrenal gland appears unremarkable. KIDNEYS:There is bilateral nephrolithiasis. Two small calculi are seen in the lower pole the right k idney, measuring 2 and 3 millimeters. There are 2 adjacent small calculi in the midpole calyx of the left kidney, both measuring 2 millimeters. Above the 3rd slightly smaller calculus also noted in le ft kidney. Ureters are not dilated. No calculi ureterovesical junctions although detail somewhat ob scured by beam hardening artifact from right prosthesis. No solid renal masses seen.. ABDOMINAL AORTA: Abdominal aorta is not enlarged. LYMPH NODES: There is no retroperitoneal nor paraaortic adenopathy. ABDOMINAL WALL: No evidence of significant anterior abdominal wall nor inguinal hernia. GI: There is no evidence of bowel obstruction, free air, nor abscess. PELVIS: LYMPH NODES: There is no intrapelvic nor inguinal adenopathy. GI: No evidence of appendicitis.Sigmoid diverticulosis. No obvious acute diverticulitis URINARY BLADDER: No calculi nor obvious masses evident REPRODUCTIVE: Uterus and adnexal regions appear age-appropriate. There is no free fluid in the pelvi s. OSSEOUS: No significant osseous lesions. Right hip prosthesis noted. Multilevel chronic degenerative disc disease IMPRESSION: 1. There are small calculi seen in both kidneys, all measuring less than 3 millimeters. No hydroneph rosis nor hydroureter. No obvious radiopaque calculi in the urinary bladder, although the bladder pa rtially obscured by beam hardening artifact from right hip prosthesis 2. Sigmoid diverticulosis. No obvious diverticulitis. 3. No free fluid. RADIATION DOSE DELIVERED: 1,030.24mGy.cm Total DLP DATA REPOSITORY: All CT scans at this facility are submitted to the National Radiology Data Registry (NRDR) Dose Index Registry (DIR) with the [employer] (A[employer]). RADIATION OPTIMIZATION: All CT scans at this facility use at least one of these dose optimization te chniques: automated exposure control; mA and/or kV adjustment per patient size (includes targeted exa ms where dose is matched to clinical indication); or iterative reconstruction.
== END 2021-03-20 19:10 ==
PROVIDERS: PCP Physician Assistant; Visit Provider Physician Assistant
DX: Z87.442 Personal history of urinary calculi (principal); R10.84 Generalized abdominal pain; N20.0 Calculus of kidney; K57.30 Diverticulosis of large intestine without perforation or abscess without bleeding
CPT/HCPCS: 74176

== ENCOUNTER → 2021-05-19 08:35 | Outpatient (BNVA) | payer MEDICARE, SELFPAY ==
--- NOTE | 2021-05-27 14:36 | W.NUTCONSULT ---
Date of service: 05/27/21 Time of Service: 14:36 Nutritional Consult ASSESSMENT: Ana was referred for Medical Nutrition Therapy for dietary advise on how to avoid further kidney stone build up. She is dx with bilateral non obstructing kidney stones- small in nature. PMH: obesity, HTN, Back pain, recently had hip replacement. Meds: none. Diet: vegetarian including egg and fish. Diet Recall: Tea, ghanaian muffin, beans/vegetables/rice. [place] farm and grows most of her food. Drinks calcium fortified OJ for calcium. Reports highest weight 306 lbs, has lost 80 lbs in last coupld of years. Current weight 236 lbs, 63 inches, BMI : 41. Having difficulty losing more weight. Goal Wt: 199 lbs. NUTRITIONAL DIAGNOSIS: Morbid obesity in view of BMI INTERVENTION: Session today focused on dietary changes that may be beneficial for stone reduction. Recommend d/c tea intake, continue vegetarian diet and following [id number] kcal meal plan. Suspect will not be able to lose more weight as has already lost a tremendous amount of weight with life style changes. Most likely has hit her weight plateau. Encouraged for increased activity as able and following lower carb diet with high intake of water daily. MONITORING AND EVALUATION: no follow up planned at this time. Time Spent in Nutritional Counseling and Treatment: 30
== END ==
PROVIDERS: PCP Physician Assistant; Referring Provider Physician Assistant; Visit Provider Nurse Practitioner Gerontology
DX: N20.0 Calculus of kidney (principal); R39.15 Urgency of urination; E66.9 Obesity, unspecified
CPT/HCPCS: 81003; 99214

== ENCOUNTER 2021-05-27 01:44 | Outpatient (CLI) | payer OTHER, SELFPAY | END 2021-05-27 01:45 | disposition home or self-care (01) | PROVIDERS: PCP Physician Assistant; Visit Provider Dietitian, Registered ==

== ENCOUNTER 2021-11-06 11:35 | Outpatient (CLI) | payer OTHER, SELFPAY ==
--- NOTE | 2021-11-06 11:00 | DI.RAD_ITS ---
Exam(s) XR HIP RT AP LAT ONLY EXAM: XR HIP RT AP LAT ONLY CLINICAL HISTORY: ANNUAL F/U R TANYA. TECHNIQUE: 2D digital imaging was performed. COMPARISON: CR XR HIP RT COMPLETE AP PELVIS from 11/18/2020 FINDINGS: Two views Stable position alignment of right hip prosthesis. No fractures nor loosening evident. There no rad iographic evidence of osteomyelitis IMPRESSION: DATA REPOSITORY: RADIATION DOSE DELIVERED:
--- NOTE | 2021-11-06 11:15 | DI.RAD_ITS ---
Exam(s) XR HIP LT AP LAT ONLY EXAM: XR HIP LT AP LAT ONLY CLINICAL HISTORY: increasing pain. TECHNIQUE: 2D digital imaging was performed. COMPARISON: CR XR HIP RT COMPLETE AP PELVIS from 11/18/[address] RENAL COLIC WO from 03/20/2021 CR XR HIP RT AP LAT ONLY from 11/06/2021 FINDINGS: Two views Is no evidence of left hip fracture. There is moderate narrowing the hip joint space. Also marginal osteophytes in the left femoral head. Also few small degenerative subarticular cysts are noted on a cetabular side of joint. Bone density is otherwise normal. No osseous lesions. IMPRESSION: Moderate degenerative osteoarthritic changes in the hip. DATA REPOSITORY: RADIATION DOSE DELIVERED:
== END 2021-11-06 11:36 | disposition home or self-care (01) ==
LOC: DIORS 11:35
PROVIDERS: PCP Physician Assistant; Referring Provider Physician Assistant; Visit Provider Student in an Organized Health Care Education/Training Program
DX: Z96.641 Presence of right artificial hip joint (principal); M16.12 Unilateral primary osteoarthritis, left hip
CPT/HCPCS: 99214; 73502

== ENCOUNTER 2022-08-17 20:06 | Outpatient (REF) | payer OTHER, SELFPAY ==
[2022-08-17 22:02] LABS: ALT 26 U/L (14-59); AST 20 U/L (15-37); Albumin 4.3 g/dL (3.4-5.0); Alkaline Phosphatase 107 U/L (46-116); Anion Gap 8.3 mmol/L (3-11); BUN 18 mg/dL (7-18); Bilirubin, Total 0.3 mg/dL (0.2-1.0); CO2 26.7 mmol/L (21.0-32.0); Calcium 9.1 mg/dL (8.5-10.1); Calculated LDL 107 mg/dL (<100); Chloride 105 mmol/L (98-107); Cholesterol 231 mg/dL (<200); Estimated GFR 61.36 (mL/min/1.73m2); Glucose 113 mg/dL (74-106); HDL Cholesterol 58 mg/dL (40-60); Potassium 4.5 mmol/L (3.5-5.1); Sodium 140 mmol/L (136-145); TSH (W/Ref FT4) 2.59 uIU/mL (0.36-3.74); Total Protein 7.6 g/dL (6.4-8.2); Triglyceride 331 mg/dL (<150)
== END 2022-08-17 20:07 | disposition home or self-care (01) ==
LOC: NCHCN 20:06
PROVIDERS: PCP Physician Assistant; Visit Provider Nurse Practitioner Family
DX: E78.5 Hyperlipidemia, unspecified (principal); I10 Essential (primary) hypertension; R63.5 Abnormal weight gain
CPT/HCPCS: 80053; 80061; 83036; 84443

== ENCOUNTER 2024-07-14 11:23 | Emergency (ER) | payer MEDICARE, SELFPAY ==
--- NOTE | 2024-07-14 11:15 | RT.EKG_ITS ---
APPROVED REPORT Exam: Resting ECG Reason for Exam: Afib/Weakness Patient Location: E HR:89 bpm ECG Measurements Heart Rate 89 AXIS UT 140 P 51 QRSd 81 QRS 33 QT 352 T 50 QTc 429 Conclusion Sinus rhythm...normal P axis, V-rate 60- 99 No STEMI
--- NOTE | 2024-07-14 11:17 | ED.GENADUL_ITS ---
Discharge Plan Disposition Patient Disposition: Home Discharge Details Clinical Impression: Influenza A, Acute kidney injury Primary Care Provider: Alyse Wilkerson ED Provider: Ernesto Deleon Home Meds and New Rx's Prescriptions: Continued magnesium oxide 500 mg capsule 250 mg PO BID lisinopril 10 mg tablet 10 mg PO DAILY cyclobenzaprine 5 mg tablet 5 mg PO DAILY PRN celecoxib [Celebrex] 200 mg capsule 200 mg PO BID tamsulosin 0.4 mg capsule 0.4 mg PO QHS acetaminophen [Tylenol Extra Strength] 500 mg tablet 500 mg PO Q6H PRNQty: 90 0RF Discharge Instructions Additional Instructions: You were seen in the ED for your weakness. You were wound to have the flu. Please ensure you stay hydrated. If you do not urinate at least once every 8 hour while awake please return. Please follow up with your PCP next week. For your pain please take medications as follows: 1. Take acetaminophen (Tylenol), 1,000 mg (two 500 mg tabs) every 6 hours Discharge Data Discharge Date/Time-TO BE ENTERED AT DEPARTURE: 07/14/24 14:11 HPI General Date/Time Provider Initiated Documentation: 07/14/24 11:33 . HPI Narrative: MDM This is an overall very well-appearing normothermic and not tachycardic not hypoxic 68-year-old female found to be positive for influenza for which she will complete a p.o. trial and ambulatory trial in the setting of her acute kidney injury. No pain out of proportion to suggest necrotizing soft tissue infection. No chest pain to suggest myocarditis. Not short of breath to suggest PE the patient is under tachycardic not hypoxic. She denies nausea vomiting abdominal pain so no concern for intra-abdominal infection. Will ensure that she is able to tolerate p.o. No increased work of breathing nor prolonged expiratory phase to suggest benefit from steroids and nebulization treatment. Will ensure she do es not have an infiltrate on chest x-ray and will also obtain hip x-ray to ensure she does not have a fracture though she has been ambulatory still if her x-ray is negative I do not feel that she requires a CT scan of her hip as my suspicion is relatively low for hip fracture. Patient does not appear volume overloaded and is not short of breath so not concern for acute heart failure. 12:06 PM Labs notable for MARIA TERESA. Mild anion gap normal bicarbonate??not consistent with DKA. Will provide 1.5 L of fluids p.o. trial and reassess. Given the duration of patient's symptoms greater than 48 hours no indication for oseltamavir. Given that she is going home will not swab for belkis flu per health department. HPI This is a 68-year-old female with history of elevated BMI hyperlipidemia arrived to the emergency department in setting of cough and decreased appetite. She reports her symptoms began 3 days ago. She was feeling lightheaded with standing today. She fell outside yesterday and noticed pain in her left hip. She has been walking subsequently. She did not hit her head nor lose consciousness. She denies routine tobacco and ethanol. She smokes marijuana. She has had a cough. She denies history of coronary artery disease diabetes. She denies dysuria frequency chest pain shortness of breath fevers nausea vomiting abdominal pain. Exam General: Well-appearing in no acute distress speaking in complete sentences. Head: Normocephalic, atraumatic. Eye: Extraocular eye movements intact. No conjunctival injection. No scleral icterus. Ear, nose, mouth, throat: Grossly normal inspection. Normal voice, handling secretions normally. Neck: Trachea midline. No midline cervical spinal tenderness. Cardiovascular: Well-perfused distal extremities. Regular rate and rhythm. Respiratory: Nonlabored respiration. Clear lungs bilaterally. Gastrointestinal: Nondistended abdomen. Soft nontender. Musculoskeletal: No no significant lower extremity pitting edema. Moving all 4 extremities spontaneously. Pelvis stable. Nontender bilateral lower extremities. No pain with passive range of motion bilateral hips. Skin: Normal for age and race, grossly normal temperature and turgor. No acute rash. Neurologic: Alert and appropriate, no apparent acute deficits. GCS 15. Related Data Home Medications ?Medication ?Instructions ?Recorded ?Confirmed magnesium oxide 500 mg capsule 250 mg PO BID 10/29/20 07/14/24 acetaminophen 500 mg tablet 500 mg PO Q6H PRN #90 tabs 11/05/20 07/14/24 (Tylenol Extra Strength) celecoxib 200 mg capsule (Celebrex) 200 mg PO BID 04/01/21 07/14/24 cyclobenzaprine 5 mg tablet 5 mg PO DAILY PRN 04/01/21 07/14/24 lisinopril 10 mg tablet 10 mg PO DAILY 04/01/21 07/14/24 tamsulosin 0.4 mg capsule 0.4 mg PO QHS 04/01/21 07/14/24 Previous Rx's ?Medication ?Instructions ?Recorded acetaminophen 500 mg tablet 500 mg PO Q6H PRN #90 tabs 11/05/20 (Tylenol Extra Strength) Allergies Allergy/AdvReac Type Severity Reaction Status Date / Time No Known Allergies Allergy Verified 07/14/24 11:30 General JOLIE: 4 Medical Decision Making Quality:SDOH Health Related Social Needs: No Data to Display PFSH All Active Problems (Updated 07/14/24 @ 12:08 by Ernesto Deleon MD) Acute kidney injury (Acute) Influenza A (Acute) Degenerative joint disease of left hip (Acute) Obesity (Chronic) Nephrolithiasis (Acute) History of total right hip replacement (Acute 11/05/20) Hyperlipidemia (Acute) Degenerative disc disease (Acute) Hypertension (Chronic) Degenerative joint disease of right hip (Acute) Medical History (Updated 07/14/24 @ 12:08 by Ernesto Deleon MD) Drug induced constipation Urine incontinence Injury of thoracic spine As a young adult from a horse injury Subdural hematoma trauma from horse ~18 yrs old Depression Surgical History History of general anesthesia several times - ankle reductions removal of 4 wisdom teeth Status post D&C UTI while - lead to early delivery at 27 wks - ?infected placenta and bleeding Ruptured appendix 8 yrs old Social History Smoking/Tobacco Use Status: Former Tobacco Use tobacco type: cigarettes Quit Date: 05/24/00 Pack-years: 25 Smoking risk assessment performed?: Yes Alcohol Intake: current Alcohol Intake frequency: a few times a month Drug use: Daily Substance use type: marijuana Details: daily - smoking Current gender identity: female Do you feel safe at home: Yes Do you feel safe in your relationship?: Yes
[2024-07-14 11:22] VITALS: BP 155/77; PULSE 93; RESP 20; TEMP 36.9; O2SAT 100
[2024-07-14 11:45] LABS: Abs Immature Grans 0.02 10^3/uL (0.0-0.06); Absolute Basophil Count 0.02 10^3/uL (0.0-0.2); Absolute Eosinophil Count 0.03 10^3/uL (0.0-0.7); Absolute Lymphocyte Count 1.13 10^3/uL (1.2-3.4); Absolute Monocyte Count 0.61 10^3/uL (0.1-0.8); Absolute Neutrophil Count 3.79 10^3/uL (1.2-6.7); Basophils % 0.4 %; Eosinophils % 0.5 %; HCT 44.8 % (36.0-46.0); HGB 14.9 g/dL (11.2-15.7); Immature Grans % 0.4 %; Lymphocytes % 20.2 %; MCH 28.9 pg (27.0-33.0); MCHC 33.3 % (32.0-36.0); MCV 87 fL (80-95); MPV 10.5 fL (8.0-11.0); Monocytes % 10.9 %; Neutrophils % 67.6 %; Platelet Count 221 10^3/uL (130-400); RBC 5.15 10^6/uL (3.93-5.22); RDW 13.4 % (11.7-14.6); RDW-SD 43.3 fL
[2024-07-14 11:53] LABS: Anion Gap 13.6 mmol/L (3-11); BUN 26 mg/dL (7-18); CO2 22.4 mmol/L (21.0-32.0); CREATININE 1.8 mg/dL (0.55-1.02); Calcium 9.2 mg/dL (8.5-10.1); Chloride 105 mmol/L (98-107); Estimated GFR 29.94 (mL/min/1.73m2); Glucose 148 mg/dL (74-106); Potassium 3.7 mmol/L (3.5-5.1); Sodium 141 mmol/L (136-145)
--- NOTE | 2024-07-14 12:33 | DI.RAD_ITS ---
Exam(s) XR HIP LT COMPLETE AP PELVIS EXAM: XR HIP LT COMPLETE AP PELVIS CLINICAL HISTORY: Fall left hip pain. TECHNIQUE: 2D digital imaging was performed of the left hip. Four views were obtained. AP pelvis a nd lateral left hip views were obtained. COMPARISON: CR XR HIP RT COMPLETE AP PELVIS from 11/18/[address] RENAL COLIC WO from 03/20/2021 CR XR HIP LT AP LAT ONLY from 11/06/2021 CR XR HIP RT AP LAT ONLY from 11/06/2021 this appears to have increased in size compared to prior e xaminations. FINDINGS: BONES: No acute fracture is present. No bony destructive lesion is seen. The patient has a right tota l hip arthroplasty which is incompletely imaged. Visualized portion appears unremarkable. There is a bony protuberance at the lateral aspect of the left femoral head. This may represent a CAM type fe moral acetabular impingement lesion. JOINTS: No dislocation present. There are degenerative changes seen in the left hip with joint space narrowing. This has progressed since the prior examination. Subchondral sclerosis is present. SOFT TISSUE: Normal. IMPRESSION: No definite acute fracture or dislocation. However, if symptoms persist a CT scan of the left hip sh ould be obtained for further evaluation. DATA REPOSITORY: RADIATION DOSE DELIVERED:
--- NOTE | 2024-07-14 12:33 | DI.RAD_ITS ---
Exam(s) XR CHEST 2V PA LATERAL EXAM: XR CHEST 2V PA LATERAL CLINICAL HISTORY: Cough TECHNIQUE: 2D digital imaging was performed of the chest. Two images were obtained. PA and lateral views were obtained. COMPARISON: No exams were available for comparison FINDINGS: The patient is rotated. MEDIASTINUM: Normal. HEART: Normal. PULMONARY VASCULATURE: Normal. LUNGS: Clear. PLEURAL SPACE: No pleural effusion or pneumothorax. BONE:Within normal limits for the patient's age. OTHER FINDINGS:Normal. IMPRESSION: No acute pulmonary findings. DATA REPOSITORY: RADIATION DOSE DELIVERED:
[2024-07-14] MEDS: Normal Saline 500 ML 1000 ML IV (12:35)
[2024-07-14 13:52] VITALS: RESP 18
== END 2024-07-14 14:11 | disposition home or self-care (01) ==
PROVIDERS: Emergency Provider Emergency Medicine; PCP Physician Assistant
DX: J10.1 Influenza due to other identified influenza virus with other respiratory manifestations (principal); N17.9 Acute kidney failure, unspecified; M25.552 Pain in left hip; Z96.641 Presence of right artificial hip joint
CPT/HCPCS: 80048; 87426; 93005; 99285; 71046; 73502; 85025; 93010; 99284

== ENCOUNTER 2024-08-15 13:07 | Outpatient (REF) | payer MEDICARE, SELFPAY ==
[2024-08-15 16:00] LABS: COMMENT (LAB VIEW ONLY) 212.13 mg/dL; Microalb ug/mg Crea 41.3 ug/mg Cr
== END 2024-08-15 13:08 | disposition home or self-care (01) ==
LOC: NCHCN 13:07
PROVIDERS: PCP Physician Assistant; Visit Provider Nurse Practitioner Family
DX: N39.0 Urinary tract infection, site not specified (principal); R82.89 Other abnormal findings on cytological and histological examination of urine
CPT/HCPCS: 82043; 82570; 87086

== ENCOUNTER 2024-10-06 19:13 | Outpatient (REF) | payer MEDICARE, SELFPAY ==
[2024-10-06 21:41] LABS: Bilirubin Small (Negative); Blood Negative (Negative); Clarity Clear (Clear); Glucose Negative (Negative); Ketones Trace mg/dL (Negative); Leukocyte Esterase Negative (Negative); Nitrite Negative (Negative); Specific Gravity >= 1.030 (1.005-1.025); Urobilinogen 0.2 mg/dL (Up to 0.2); pH 5.5 (5-8)
== END 2024-10-06 19:14 | disposition home or self-care (01) ==
LOC: NCHCN 19:13
PROVIDERS: PCP Physician Assistant; Visit Provider Family Medicine
DX: R30.0 Dysuria (principal); R82.89 Other abnormal findings on cytological and histological examination of urine
CPT/HCPCS: 81003

== ENCOUNTER 2025-01-16 15:19 | Emergency (ER) | payer MEDICARE, SELFPAY ==
[2025-01-16 15:22] VITALS: BP 188/118; PULSE 78; RESP 20; TEMP 36.8; O2SAT 95
--- NOTE | 2025-01-16 15:30 | DI.RAD_ITS ---
Exam(s) XR KNEE RT 3V AP,LAT,CHEO EXAM: XR KNEE RT 3V AP,LAT,CHEO CLINICAL HISTORY: medial knee pain. TECHNIQUE: 2D digital imaging was performed. COMPARISON: No exams were available for comparison FINDINGS: 3 views No evidence of acute fracture. There is small amount of increased joint fluid. There are mild-moderate degenerative changes in the lateral compartment Medial compartment appears unremarkable. Bone density normal. No osseous lesions. IMPRESSION: Mild degenerative changes in the lateral compartment. No fractures. Small amount of restoring fluid evident DATA REPOSITORY: RADIATION DOSE DELIVERED:
--- NOTE | 2025-01-16 15:43 | ED.GENADUL_ITS ---
Discharge Plan Disposition Patient Disposition: Home Condition: Stable Discharge Details Clinical Impression: Knee pain, right Primary Care Provider: Alyse Wilkerson ED Provider: Wilder Hopkins Home Meds and New Rx's Prescriptions: Continued acetaminophen [Tylenol Extra Strength] 500 mg tablet 500 mg PO Q6H PRNQty: 90 0RF Discontinued magnesium oxide 500 mg capsule 250 mg PO BID lisinopril 10 mg tablet 10 mg PO DAILY cyclobenzaprine 5 mg tablet 5 mg PO DAILY PRN celecoxib [Celebrex] 200 mg capsule 200 mg PO BID tamsulosin 0.4 mg capsule 0.4 mg PO QHS Discharge Instructions Additional Instructions: Your x-ray showed signs of arthritis. I would recommend trying to start physical therapy. Follow-up with your primary care provider as well especially if the pain is continuing. He can take 1000 mg of acetaminophen every 6 hours as needed and do not exceed 3000 mg in a 24-hour period. The topical diclofenac applied to your knee can help. If you feel more ill or have new symptoms such as high fevers return to the emergency department for reevaluation. Stand Alone Forms: Physical Therapy Referral HPI General Date/Time Provider Initiated Documentation: 01/16/25 15:20 . Limitations to Documentation: no limitations . Information obtained by: patient . History of Present Illness 69 year old F presents to the emergency department with the chief complaint of right knee pain, described as moderate, Quality is described as aching, Patient extremity. Patient started experiencing this day(s) (5) and it has been constant. Rest improves symptom(s), Movement worsens symptoms . Patient notes no other symptoms.. Related Data Home Medications ?Medication ?Instructions ?Recorded ?Confirmed acetaminophen 500 mg tablet 500 mg PO Q6H PRN #90 tabs 11/05/20 01/16/25 (Tylenol Extra Strength) Previous Rx's ?Medication ?Instructions ?Recorded acetaminophen 500 mg tablet 500 mg PO Q6H PRN #90 tabs 11/05/20 (Tylenol Extra Strength) Allergies Allergy/AdvReac Type Severity Reaction Status Date / Time No Known Allergies Allergy Verified 01/16/25 15:31 General Stated Complaint: Orthopedic JOLIE: 3 Review of Systems All systems reviewed & are unremarkable except as noted in HPI and below Constitutional Constitutional: Denies chills, Denies fever(s) and Denies weakness Cardiovascular Cardiovascular: Denies chest pain and Denies dyspnea Respiratory Respiratory: Denies dyspnea Gastrointestinal Gastrointestinal: Denies abdominal pain and Denies vomiting Neurologic Neurologic: Denies weakness Exam Const General: no acute distress Orientation: alert HENNV Head: normal to inspection Ears: external ears normal General nose exam: external nose normal Mouth: moist mucous membranes Eyes General: appearance normal, both eyes and all related structures Neck Neck: normal visual inspection Resp Effort & Inspection: normal respiratory effort and able to speak in complete sentences Cardio Rate: regular rate Skin General skin exam: no rashes or lesions noted Neuro General: patient alert and patient oriented x3 Extrem General: full ROM and capillary refill normal Psych Mental Status: mental status grossly normal Course Vital Signs Vital signs: Vital Signs Temperature 36.8 C 01/16/25 15:22 Pulse 78 01/16/25 15:22 Respiratory Rate 20 01/16/25 15:22 Blood Pressure 188/118 H 01/16/25 15:22 Pulse Oximetry 95 01/16/25 15:22 Temperature 36.8 C 01/16/25 15:22 Temperature Source Temporal Artery Scan 01/16/25 15:22 Pulse 78 01/16/25 15:22 Respiratory Rate 20 01/16/25 15:22 Blood Pressure 188/118 H 01/16/25 15:22 Pulse Oximetry 95 01/16/25 15:22 Oxygen Delivery Method Room Air 01/16/25 15:22 Oxygen Flow Rate 0 01/16/25 15:22 Pain Level 4 01/16/25 15:22 Medical Decision Making 69-year-old female comes in with nontraumatic right knee pain for the last 4 to 5 days. Denies any fevers or systemic symptoms. She says that walking around has increased her pain. She is stable on arrival, she localizes the pain to the medial right knee. There is no swelling or redness or warmth. She has full range of motion of the knee. She has intact distal sensation and pulses. No calf tenderness. No tenderness in the hip. I suspect she could have strained it walking versus arthritis, there is no findings on exam or history to suggest septic joint. Will obtain x-rays though my suspicion for fracture is low. X-ray does not show any fractures but does have some degenerative findings. She is stable. I am going to offer her a physical therapy referral and also because she says she has chronic issues with her back as well. She will also follow-up with her PCP and return precautions given Differential Diagnosis Differential Diagnosis: Strain, arthritis, bursitis PFSH All Active Problems (Updated 01/16/25 @ 17:25 by Wilder Hopkins MD) Knee pain, right (Acute) Degenerative joint disease of left hip (Acute) Obesity (Chronic) Nephrolithiasis (Acute) History of total right hip replacement (Acute 11/05/20) Hyperlipidemia (Acute) Degenerative disc disease (Acute) Hypertension (Chronic) Degenerative joint disease of right hip (Acute) Medical History (Updated 01/16/25 @ 17:25 by Wilder Hopkins MD) Drug induced constipation Urine incontinence Injury of thoracic spine As a young adult from a horse injury Subdural hematoma trauma from horse ~18 yrs old Depression Surgical History History of general anesthesia several times - ankle reductions removal of 4 wisdom teeth Status post D&C UTI while - lead to early delivery at 27 wks - ?infected placenta and bleeding Ruptured appendix 8 yrs old Social History Smoking/Tobacco Use Status: Former Tobacco Use tobacco type: cigarettes Quit Date: 05/24/00 Pack-years: 25 Smoking risk assessment performed?: Yes Alcohol Intake: current Alcohol Intake frequency: a few times a month Drug use: Daily Substance use type: marijuana Details: daily - smoking Current gender identity: female Do you feel safe at home: Yes Do you feel safe in your relationship?: Yes
[2025-01-16] MEDS: Ibuprofen 400 MG TAB PO (15:59)
[2025-01-16] MEDS: Diclofenac 1% Gel 100 GM TUBE TP (17:44)
== END 2025-01-16 17:50 | disposition home or self-care (01) ==
PROVIDERS: Emergency Provider Emergency Medicine; PCP Physician Assistant
DX: M25.561 Pain in right knee (principal)
CPT/HCPCS: 99283 ×2; 73562

== ENCOUNTER 2025-03-21 13:05 | Outpatient (CLI) | payer MEDICARE, SELFPAY ==
[2025-03-21 13:45] LABS: HCT 41.5 % (36.0-46.0); HGB 13.7 g/dL (11.2-15.7); MCH 29.1 pg (27.0-33.0); MCHC 33.0 % (32.0-36.0); MCV 88 fL (80-95); MPV 10.6 fL (8.0-11.0); Platelet Count 243 10^3/uL (130-400); RBC 4.70 10^6/uL (3.93-5.22); RDW 13.4 % (11.7-14.6); RDW-SD 43.6 fL; WBC 8.56 10^3/uL (4.4-10.8)
[2025-03-21 14:47] LABS: ALT 23 U/L (14-59); AST 16 U/L (15-37); Albumin 3.8 g/dL (3.4-5.0); Alkaline Phosphatase 99 U/L (46-116); Anion Gap 8.4 mmol/L (3-11); BUN 14 mg/dL (7-18); Bilirubin, Total 0.3 mg/dL (0.2-1.0); CO2 29.6 mmol/L (21.0-32.0); Calcium 9.4 mg/dL (8.5-10.1); Calculated LDL 136 mg/dL (<100); Chloride 105 mmol/L (98-107); Cholesterol 230 mg/dL (<200); Estimated GFR 78.72 (mL/min/1.73m2); Glucose 97 mg/dL (74-106); HDL Cholesterol 53 mg/dL (>or=50); Potassium 3.9 mmol/L (3.5-5.1); Sodium 143 mmol/L (136-145); TSH (W/Ref FT4) 2.97 uIU/mL (0.36-3.74); Total Protein 7.5 g/dL (6.4-8.2); Triglyceride 206 mg/dL (<150)
== END 2025-03-21 13:06 | disposition home or self-care (01) ==
LOC: LBO 13:07
PROVIDERS: PCP Physician Assistant
DX: E66.813 Obesity, class 3 (principal); I10 Essential (primary) hypertension; E78.5 Hyperlipidemia, unspecified; F32.9 Major depressive disorder, single episode, unspecified
CPT/HCPCS: 36415; 80053; 80061; 85027; 84443

== ENCOUNTER → 2025-04-30 10:23 | Outpatient (BNVA) | payer MEDICARE, SELFPAY | PROVIDERS: PCP Physician Assistant; Referring Provider Physician Assistant; Visit Provider Student in an Organized Health Care Education/Training Program | DX: M25.552 Pain in left hip (principal); M16.12 Unilateral primary osteoarthritis, left hip | CPT/HCPCS: 99214 ==

== ENCOUNTER 2025-05-04 09:06 | Day surgery (SDC) | payer MEDICARE, SELFPAY ==
[2025-05-04 09:15] VITALS: BP 177/83; PULSE 77; RESP 18; TEMP 36; O2SAT 98
--- NOTE | 2025-05-04 09:36 | W.ANESPRE ---
General Info Date of Service Date Performed: 05/04/25 Height: 5 ft 8 in Weight: 119.6 kg Body Mass Index (BMI): 40.1 Surgical Procedure: Operation Date: 05/04/25 11:40 Proposed Procedure Side Surgeon p Cataract Extraction with IOL Implant Left Lucio Landers MD Meds Allergies and Home Medications Allergies Allergy/AdvReac Type Severity Reaction Status Date / Time No Known Allergies Allergy Verified 05/04/25 09:30 Home Medication ?Medication ?Instructions ?Recorded acetaminophen 500 mg tablet 500 mg PO Q6H PRN #90 tabs 11/05/20 (Tylenol Extra Strength) Current Visit Medications: Current Medications Generic Name Dose Route Start Last Admin Trade Name Freq PRN Reason Stop Dose Admin Acetaminophen 1,000 mg 05/04/25 06:00 Acetaminophen 500 Mg Tab PO 06/03/25 05:59 Q4H PRN PRN Balanced Salt Solution 500 ml 05/04/25 06:00 Balanced Salt Soln.-Plus 500 Ml Bag OP 06/03/25 05:59 DIRECTED [facility] Miscellaneous Medication 0 ml 05/04/25 06:00 Prednisolone 1%, Moxifloxacin 0.5%, Bromfenac 0.09% 5.6ml Btl OS 06/03/25 05:59 DIRECTED [facility] Miscellaneous Medication 0 ml 05/04/25 06:00 Tropicam./Phenyleph. (1/2.5%) 5 Ml Btl OS 06/03/25 05:59 DIRECTED [facility] Tetracaine HCl 0 ml 05/04/25 06:00 Tetracaine 0.5% 4 Ml Btl OS 06/03/25 05:59 DIRECTED [facility] PFSH Active Problems Active Problems: Problem Status Onset Code Nuclear age-related cataract, left eye Acute H25.12 Degenerative joint disease of left hip Acute M16.12 Obesity Chronic E66.9 Nephrolithiasis Acute N20.0 Hyperlipidemia Acute E78.5 Degenerative disc disease Acute Hypertension Chronic I10 Degenerative joint disease of right hip Acute M16.11 Medical History Medical History Urinary stone 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 Spondylosis Drug induced constipation Urine incontinence Injury of thoracic spine As a young adult from a horse injury Subdural hematoma trauma from horse ~18 yrs old Depression Surgical History Surgical History History of surgery on lower extremity left leg ORIF age 8 History of total right hip replacement (11/05/20) History of general anesthesia several times - ankle reductions removal of 4 wisdom teeth Status post D&C UTI while - lead to early delivery at 27 wks - ?infected placenta and bleeding Ruptured appendix 8 yrs old Tobacco Smoking/Tobacco Use Status: Former Tobacco Use Alcohol Alcohol Intake: current Alcohol intake frequency: a few times a month Substance Use Substance use: Daily Substance use type: marijuana Vital Signs and Lab Results Vital Signs Most Recent Vital Signs in EMR: Most Recent Vital Signs Temp Pulse Resp BP Pulse Ox 36 C L 77 18 177/83 H 98 05/04/25 09:15 05/04/25 09:15 05/04/25 09:15 05/04/25 09:15 05/04/25 09:15 Anesthesia Assessment and Plan Anesthesia History Personal History: No History of Anesthesia Complications Family History: No Family History of Anesthesia Complications Exercise Tolerance Exercise Tolerance: Metabolic Equivalents>4 Pertinent Negatives Pertinent Negatives: No Symptoms of GERD Cardiac & Pulmonary Exam Cardiac Exam: Normal S1/S2 Heart Sounds Pulmonary Exam: Clear Bilateral Breath Sounds Implantable Cardiac Device Does patient have a Pacemaker or an ICD?: No Airway Exam Known Difficult Airway: No Mallampati Class: 2 Mouth Opening: Narrow (< 3cm) Thyromental Distance: Greater than 3 cm Neck Range of Motion: Full ROM Neck Circumference: Thick Teeth Condition: Normal Dentition ASA Classification ASA Score: ASA 3 Emergency Case?: No NPO Status NPO Status: NPO Clears >2 hours, Solids >8 hours Anesthesia Plan Resuscitation Status: Full Code Anesthesia Technique: MAC Anesthesia Airway Planned: Natural Airway Monitors Used: Standard Monitors
[2025-05-04] MEDS: Tropicam./Phenyleph. (1/2.5%) 5 ML BTL OS ×3 (09:37→09:47)
[2025-05-04 10:10] VITALS: BMI 40.1
[2025-05-04] MEDS: Duovisc Viscoelastic System EACH 1 EACH (10:35)
[2025-05-04] MEDS: Phenylephrine/Lidocaine (15/10) MG/ML 1 ML VIAL (10:36)
[2025-05-04] MEDS: Lidocaine 1% Pres-Free 5 ML VIAL (10:36)
[2025-05-04] MEDS: Moxifloxacin-PF 1 MG/ML VIAL (10:36)
[2025-05-04] MEDS: Povidone-Iodine Ophth 30 ML BTL (10:37)
[2025-05-04] MEDS: Prednisolone 1%, Moxifloxacin 0.5%, Bromfenac 0.09% 5.6ML BTL OS (10:38)
[2025-05-04] MEDS: Balanced Salt Soln.-PLUS 500 ML BAG OP (10:38)
[2025-05-04] MEDS: Tetracaine 0.5% 4 ML BTL OS (10:39)
[2025-05-04] MEDS: Trypan Blue 0.06% 0.5 ML SYR (10:39)
[2025-05-04 10:50] VITALS: BP 136/109; PULSE 74; RESP 14; TEMP 36.4; O2SAT 97
--- NOTE | 2025-05-04 10:53 | W.PM.DSUDISC ---
Date of service: 05/04/25 Discharge Plan Disposition Patient Disposition: Home Discharge Details Attending Provider: Lucio Landers Primary Care Provider: Natasha Ramires Home Meds and New Rx's Prescriptions: No Action acetaminophen [Tylenol Extra Strength] 500 mg tablet 500 mg PO Q6H PRNQty: 90 0RF Discharge Instructions Stand Alone Forms: [facility] Post-Op Cataract, [place] [facility] ([facility]), Portal Information Discharge Orders Discharge Orders: Discharge Order (Routine); Ordered 05/04/25 Ordered By: Lucio Landers DS: Diagnosis Discharge Diagnosis (1) Nuclear age-related cataract, left eye: Status: Resolved
--- NOTE | 2025-05-04 10:53 | W.PM.OP ---
Operative Note Operative Note PRE-OP DIAGNOSIS: Nuclear cataract, left eye POST-OP DIAGNOSIS: same PROCEDURE: Cataract extraction using phacoemulsification with intraocular lens implant, left eye SURGEON: Lucio Landers ANESTHESIA TYPE: Local By Surgeon and MAC Refer to Anesthesia Record PATHOLOGY: none sent COMPLICATIONS: None Patient was transported to: same day Patient's condition: stable Implants: Munir Clareon [id number] Indications: Progressive decreased vision due to cataract, left eye Procedure Description: CATARACT SURGERY OPERATIVE REPORT PREOPERATIVE DIAGNOSIS: Nuclear cataract, left eye POSTOPERATIVE DIAGNOSIS: Same OPERATION: Cataract extraction using phacoemulsification with posterior chamber intraocular lens implant, left eye. IOL: IOL Newspaper Carrier/Model: Munir Clareon [id number] IOL Power: + 19.0 diopters IOL Serial Number: [id number] Optic Diameter: 6.0mm Haptic/Overall Diameter: 13.0mm PHACO INFO: Munir Blue Pillarurion Vision System with OZil and Active Fluidics Cumulative Dispersed Energy (CDE): 6.53 seconds SURGEON: Lucio Landers MD, MJ ANESTHESIA: Monitored Anesthesia Care (MAC), with local sub-tenon's anesthetic infiltration COMPLICATIONS: None SPECIMENS: None INDICATIONS FOR PROCEDURE: The patient is a 69-year-old lady with history of diminished visual acuity in her left eye secondary to the development of nuclear cataract. She is significantly symptomatic that she desires cataract surgery and attempt to improve and maximize her vision. The option of cataract surgery was offered to the patient and she wished to proceed. See office notes for detailed information. PROCEDURE: The correct surgical eye was identified and marked as the left eye and the pupil was dilated in the preoperative area using mydriatics and cycloplegics. The dilated pupil size was 4.5 mm. Oral sedation was administered in the form of an Imprimis MKO Melt (midazolam 3mg/ketamine 25mg/ondansetron 2mg). The patient was brought to the operating room where cardiopulmonary monitoring was instituted and surgical time-out was performed, confirming the correct operative eye and IOL power. Topical anesthesia was administered and ophthalmic povidone-iodine 5% was instilled into the conjunctival fornices. The alfred-ocular area was prepped with Betadine 10% solution and draped in the usual sterile fashion for intraocular surgery, including an aperture drape. A Tegaderm transparent film dressing was cut in half and used to cover the lashes and lid margins. Care was taken to sequester the lashes and lid margins under the Tegaderm dressing. A lid speculum was placed between the lids of the operative eye and the Munir LuxOR Revalia operating microscope was maneuvered into position. Surjit scissors were then used to make a conjunctival buttonhole approximately 6mm posterior to the limbus in the inferonasal quadrant. Blunt dissection was carried out to expose bare sclera, and a blunt-tipped sub-tenon?s anesthesia cannula was introduced and passed posteriorly along the globe where non-preserved plain lidocaine was injected into posterior sub-Tenon?s space. A sideport knife was used to make a paracentesis port. VisionBlue was injected into the anterior chamber and allowed to sit for 30 seconds. Intraocular phenylephrine/lidocaine was injected into the anterior chamber. The anterior chamber was then filled with viscoelastic. A keratome knife was used construct a two-plane clear corneal tunnel extending 2.0mm into clear cornea. A flap was raised on the anterior capsule and capsulorhexis forceps were used to complete a continuous curvilinear capsulorhexis of 5.0 mm. Balanced salt solution was then used to perform cortical cleaving hydrodissection and nuclear hydrodelineation until the lens could be freely rotated within the capsular bag. The lens nucleus was then disassembled and removed within the capsular bag and iris plane using phacoemulsification. Residual cortical material was removed using the irrigation/aspiration handpiece. The posterior capsule was carefully polished to remove as much residual lens epithelial cells as safely possible. The capsular bag was then inflated and the anterior chamber deepened with viscoelastic. The lens implant described above was inserted into the capsular bag using the Munir Autonome Injector. A Kuglen hook was used to dial the IOL into position. Residual viscoelastic was then removed first from posterior to the IOL, then from the anterior chamber using the I/A handpiece. The lens implant was noted to center nicely within the capsular bag. The incisions were stromally hydrated, and the anterior chamber was reformed using BSS. Then 0.5cc of moxifloxacin 1.0mg/ml were injected into the capsular bag and anterior chamber. The incisions were checked with a Weck spear and found to be secure. Several drops of ophthalmic povidone-iodine 5% were then applied to the eye followed by two drops of combination steroid/NSAID/antibiotic solution. The drapes were removed and a clear plastic protective eye shield was placed over the eye. The patient was then returned to Same Day Surgery in stable condition. Date of Procedure: 05/04/25
--- NOTE | 2025-05-04 11:05 | W.ANESPOSTOP ---
Postoperative Evaluation Date, Time and Location Date Performed: 05/04/25 Time Performed: 11:05 Patient Location: Day Surgery Unit Vital Signs Most Recent Imported Vital Signs: Most Recent Vital Signs Temp Pulse Resp BP Pulse Ox 36 C L 74 14 136/109 H 97 05/04/25 09:15 05/04/25 10:50 05/04/25 10:50 05/04/25 10:50 05/04/25 10:50 Pain Score Most Recent Pain Score: Most Recent Pain Score Pain Level 0 05/04/25 10:50 Assessment Mental Status: Awake (Alert & Oriented to Patient Baseline) Airway and Respiratory Function: Patent airway with normal (patient baseline) respiratory exam Cardiovascular Function: Hemodynamically Stable Hydration Status: Adequately Hydrated Nausea & Vomiting: No Nausea or Vomiting Pain: Pt. Denies Any Pain Peripheral Nerve Block: Patient did not receive a nerve block
[2025-05-04 11:16] VITALS: BP 150/109; PULSE 75; RESP 14; TEMP 36.2; O2SAT 97
== END 2025-05-04 11:27 | disposition home or self-care (01) ==
LOC: SUR 09:08
PROVIDERS: Visit Provider Ophthalmology
PROC: (CPT 66984; principal; 2025-05-04 11:30)
DX: H25.12 Age-related nuclear cataract, left eye (principal)
CPT/HCPCS: 66984; 00123; V2632; J2003

== ENCOUNTER 2025-05-11 06:29 | Day surgery (SDC) | payer MEDICARE, SELFPAY ==
[2025-05-11 06:35] VITALS: BP 172/98; PULSE 74; RESP 16; TEMP 36.5; O2SAT 95
[2025-05-11] MEDS: Tropicam./Phenyleph. (1/2.5%) 5 ML BTL OD ×3 (06:54→07:04)
--- NOTE | 2025-05-11 07:28 | W.ANESPRE ---
General Info Date of Service Date Performed: 05/11/25 Height: 5 ft 8 in Weight: 119.6 kg Body Mass Index (BMI): 40.1 Surgical Procedure: Operation Date: 05/11/25 08:40 Proposed Procedure Side Surgeon p Cataract Extraction with IOL Implant Right Lucio Landers MD Meds Allergies and Home Medications Allergies Allergy/AdvReac Type Severity Reaction Status Date / Time No Known Allergies Allergy Verified 05/11/25 06:52 Home Medication ?Medication ?Instructions ?Recorded acetaminophen 500 mg tablet 500 mg PO Q6H PRN #90 tabs 11/05/20 (Tylenol Extra Strength) Current Visit Medications: Current Medications Generic Name Dose Route Start Last Admin Trade Name Freq PRN Reason Stop Dose Admin Acetaminophen 1,000 mg 05/11/25 06:00 Acetaminophen 500 Mg Tab PO 06/10/25 05:59 Q4H PRN PRN Balanced Salt Solution 500 ml 05/11/25 06:00 Balanced Salt Soln.-Plus 500 Ml Bag OP 06/10/25 05:59 DIRECTED ELIEZER Miscellaneous Medication 0 ml 05/11/25 06:00 Prednisolone 1%, Moxifloxacin 0.5%, Bromfenac 0.09% 5.6ml Btl OD 06/10/25 05:59 DIRECTED ELIEZER Miscellaneous Medication 0 ml 05/11/25 06:00 05/11/25 07:04 Tropicam./Phenyleph. (1/2.5%) 5 Ml Btl OD 06/10/25 05:59 1 drp DIRECTED ELIEZER Administration Tetracaine HCl 0 ml 05/11/25 06:00 Tetracaine 0.5% 4 Ml Btl OD 06/10/25 05:59 DIRECTED ELIEZER PFSH Active Problems Active Problems: Problem Status Onset Code Nuclear age-related cataract, right eye Acute H25.11 Nuclear age-related cataract, left eye Resolved H25.12 Degenerative joint disease of left hip Acute M16.12 Obesity Chronic E66.9 Nephrolithiasis Acute N20.0 Hyperlipidemia Acute E78.5 Degenerative disc disease Acute Hypertension Chronic I10 Degenerative joint disease of right hip Acute M16.11 Medical History Medical History Urinary stone 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 Spondylosis Drug induced constipation Urine incontinence Injury of thoracic spine As a young adult from a horse injury Subdural hematoma trauma from horse ~18 yrs old Depression Surgical History Surgical History History of cataract extraction left eye 05/04/25, History of surgery on lower extremity left leg ORIF age 8 History of total right hip replacement (11/05/20) History of general anesthesia several times - ankle reductions removal of 4 wisdom teeth Status post D&C UTI while - lead to early delivery at 27 wks - ?infected placenta and bleeding Ruptured appendix 8 yrs old Tobacco Smoking/Tobacco Use Status: Former Tobacco Use Alcohol Alcohol Intake: current Alcohol intake frequency: a few times a month Substance Use Substance use: Daily Substance use type: marijuana Details: Last THC 05/10 Vital Signs and Lab Results Vital Signs Most Recent Vital Signs in EMR: Most Recent Vital Signs Temp Pulse Resp BP Pulse Ox 36.5 C 74 16 172/98 H 95 05/11/25 06:35 05/11/25 06:35 05/11/25 06:35 05/11/25 06:35 05/11/25 06:35 Anesthesia Assessment and Plan Anesthesia History Personal History: No History of Anesthesia Complications Family History: No Family History of Anesthesia Complications Exercise Tolerance Exercise Tolerance: Metabolic Equivalents>4 Pertinent Negatives Pertinent Negatives: No Symptoms of GERD Cardiac & Pulmonary Exam Cardiac Exam: Normal S1/S2 Heart Sounds Pulmonary Exam: Clear Bilateral Breath Sounds Implantable Cardiac Device Does patient have a Pacemaker or an ICD?: No Airway Exam Known Difficult Airway: No Mallampati Class: 2 Mouth Opening: Narrow (< 3cm) Thyromental Distance: Greater than 3 cm Neck Range of Motion: Full ROM Neck Circumference: Thick Teeth Condition: Generalized Poor Dentition and Loose or Chipped ASA Classification ASA Score: ASA 3 Emergency Case?: No NPO Status NPO Status: NPO Clears >2 hours, Solids >8 hours Anesthesia Plan Resuscitation Status: Full Code Anesthesia Technique: MAC Anesthesia Airway Planned: Natural Airway Monitors Used: Standard Monitors
[2025-05-11 07:29] VITALS: BMI 40.1
[2025-05-11] MEDS: Duovisc Viscoelastic System EACH 1 EACH (08:24)
[2025-05-11] MEDS: Lidocaine 1% Pres-Free 5 ML VIAL (08:25)
[2025-05-11] MEDS: Phenylephrine/Lidocaine (15/10) MG/ML 1 ML VIAL (08:26)
[2025-05-11] MEDS: Moxifloxacin-PF 1 MG/ML VIAL (08:26)
[2025-05-11] MEDS: Povidone-Iodine Ophth 30 ML BTL (08:27)
[2025-05-11] MEDS: Balanced Salt Soln.-PLUS 500 ML BAG OP (08:28)
[2025-05-11] MEDS: Prednisolone 1%, Moxifloxacin 0.5%, Bromfenac 0.09% 5.6ML BTL OD (08:28)
[2025-05-11] MEDS: Tetracaine 0.5% 4 ML BTL OD (08:29)
[2025-05-11 08:45] VITALS: BP 140/90; PULSE 72; RESP 18; TEMP 36.1; O2SAT 95
--- NOTE | 2025-05-11 08:48 | ROE_ITS ---
Operative Note Operative Note PRE-OP DIAGNOSIS: Nuclear cataract, right eye POST-OP DIAGNOSIS: same PROCEDURE: Cataract extraction using phacoemulsification with intraocular lens implant, right eye SURGEON: Lucio Landers ANESTHESIA TYPE: Local By Surgeon and MAC Refer to Anesthesia Record ESTIMATED BLOOD LOSS: 0 PATHOLOGY: none sent COMPLICATIONS: None Patient was transported to: same day Patient's condition: stable Implants: Munir Clareon [id number] Indications: Progressive decreased vision due to cataract, right eye Procedure Description: CATARACT SURGERY OPERATIVE REPORT PREOPERATIVE DIAGNOSIS: Nuclear cataract, right eye POSTOPERATIVE DIAGNOSIS: Same OPERATION: Cataract extraction using phacoemulsification with posterior chamber intraocular lens implant, right eye. IOL: IOL Measuring Machine Tender/Model: Munir Clareon [id number] IOL Power: + 19.0 diopters IOL Serial Number: [id number] Optic Diameter: 6.0mm Haptic/Overall Diameter: 13.0mm PHACO INFO: Munir Centurion Vision System with OZil and Active Fluidics Cumulative Dispersed Energy (CDE): 5.33 seconds SURGEON: Lucio Landers MD, MJ ANESTHESIA: Monitored Anesthesia Care (MAC), with local sub-tenon's anesthetic infiltration COMPLICATIONS: None SPECIMENS: None INDICATIONS FOR PROCEDURE: The patient is a 69-year-old lady with history of diminished visual acuity and both eyes secondary to the development of bilateral nuclear cataract. She has already undergone cataract surgery in the left eye and is doing well postoperative. She now presents for cataract surgery in the right eye. See office notes for detailed information. PROCEDURE: The correct surgical eye was identified and marked as the right eye and the pupil was dilated in the preoperative area using mydriatics and cycloplegics. The dilated pupil size was 5.0 mm. Oral sedation was administered in the form of an Imprimis MKO Melt (midazolam 3mg/ketamine 25mg/ondansetron 2mg). The patient was brought to the operating room where cardiopulmonary monitoring was instituted and surgical time-out was performed, confirming the correct operative eye and IOL power. Topical anesthesia was administered and ophthalmic povidone-iodine 5% was instilled into the conjunctival fornices. The alfred-ocular area was prepped with Betadine 10% solution and draped in the usual sterile fashion for intraocular surgery, including an aperture drape. A Tegaderm transparent film dressing was cut in half and used to cover the lashes and lid margins. Care was taken to sequester the lashes and lid margins under the Tegaderm dressing. A lid speculum was placed between the lids of the operative eye and the Munir LuxOR Revalia operating microscope was maneuvered into position. Surjit scissors were then used to make a conjunctival buttonhole approximately 6mm posterior to the limbus in the inferonasal quadrant. Blunt dissection was carried out to expose bare sclera, and a blunt-tipped sub-tenon?s anesthesia cannula was introduced and passed posteriorly along the globe where non- preserved plain lidocaine was injected into posterior sub-Tenon?s space. A sideport knife was used to make a paracentesis port. Intraocular phenylephrine/lidocaine was injected into the anterior chamber. The anterior chamber was then filled with viscoelastic. A keratome knife was used to construct a two--plane clear corneal tunnel extending 2.0mm into clear cornea. A flap was raised on the anterior capsule and capsulorhexis forceps were used to complete a continuous curvilinear capsulorhexis of 5.0 mm. Balanced salt solution was then used to perform cortical cleaving hydrodissection and nuclear hydrodelineation until the lens could be freely rotated within the capsular bag. The lens nucleus was then disassembled and removed within the capsular bag and iris plane using phacoemulsification. Residual cortical material was removed using the I/A handpiece. The posterior capsule was carefully polished to remove as much residual lens epithelial cells as safely possible. The capsular bag was then inflated and the anterior chamber deepened with cohesive viscoelastic. The lens implant described above was inserted into the capsular bag using the Munir Autonome Injector. A Kuglen hook was used to dial the IOL into position. Residual viscoelastic was then removed first from posterior to the IOL, then from the anterior chamber using the I/A handpiece. The lens implant was noted to center nicely within the capsular bag. The incisions were stromally hydrated, and the anterior chamber was reformed using BSS. Then 0.5cc of moxifloxacin 1.0mg/ml were injected into the capsular bag and anterior chamber. The incisions were checked with a Weck spear and found to be secure. Several drops of ophthalmic povidone-iodine 5% were then applied to the eye followed by two drops of combination steroid/NSAID/antibiotic solution. The drapes were re moved and a clear plastic protective eye shield was placed over the eye. The patient was then returned to Same Day Surgery in stable condition. Date of Procedure: 05/11/25
--- NOTE | 2025-05-11 08:48 | W.PM.DSUDISC ---
Date of service: 05/11/25 Discharge Plan Disposition Patient Disposition: Home Discharge Details Attending Provider: Lucio Landers Primary Care Provider: Natasha Ramires Home Meds and New Rx's Prescriptions: No Action acetaminophen [Tylenol Extra Strength] 500 mg tablet 500 mg PO Q6H PRNQty: 90 0RF Discharge Instructions Stand Alone Forms: [facility] Post-Op Cataract, [place] Barrientos ([facility]) Discharge Orders Discharge Orders: Discharge Order (Routine); Ordered 05/11/25 Ordered By: Lucio Landers DS: Diagnosis Discharge Diagnosis (1) Nuclear age-related cataract, right eye: Status: Resolved
[2025-05-11 09:02] VITALS: BP 151/99; PULSE 76; RESP 16; TEMP 36.4; O2SAT 94
--- NOTE | 2025-05-11 09:20 | W.ANESPOSTOP ---
Postoperative Evaluation Date, Time and Location Date Performed: 05/11/25 Time Performed: 08:46 Patient Location: Day Surgery Unit Vital Signs Most Recent Imported Vital Signs: Most Recent Vital Signs Temp Pulse Resp BP Pulse Ox 36.4 C L 76 16 151/99 H 94 05/11/25 09:02 05/11/25 09:02 05/11/25 09:02 05/11/25 09:02 05/11/25 09:02 Pain Score Most Recent Pain Score: Most Recent Pain Score Pain Level 0 05/11/25 09:02 Assessment Mental Status: Awake (Alert & Oriented to Patient Baseline) Airway and Respiratory Function: Patent airway with normal (patient baseline) respiratory exam Cardiovascular Function: Hemodynamically Stable Hydration Status: Adequately Hydrated Nausea & Vomiting: No Nausea or Vomiting Pain: Pt. Denies Any Pain Peripheral Nerve Block: Other (Local from Dr. Landers)
== END 2025-05-11 09:13 | disposition home or self-care (01) ==
LOC: SUR 06:31
PROVIDERS: Visit Provider Ophthalmology
PROC: (CPT 66984; principal; 2025-05-11 08:30)
DX: H25.11 Age-related nuclear cataract, right eye (principal); Z98.42 Cataract extraction status, left eye
CPT/HCPCS: 66984; 00123; V2632; J2003